=== PATIENT | female | born 1965 | race Hispanic/Latino ===

== ENCOUNTER 2018-01-27 10:37 | Emergency (ER) | payer SELFPAY ==
[2018-01-27 12:26] LABS: Absolute Lymphocytes (CBC) 0.4 K/uL (0.7-4.9); Absolute Monocytes 0.1 K/uL (0.1-1.3); Absolute Neutrophil 11.3 K/uL (1.8-8.0); Basophils % 0.1 % (0-1.3); Eosinophils % 0.1 % (0-4.4); Lymphocytes % 3.2 % (15.3-44.8); MCH 22.5 pg (27.0-35.0); MCV 70.3 fL (80-100); MPV 8.3 fL (7.6-11.3); Monocytes % 1.1 % (3.3-12.3); RBC Red Blood Cell Count 4.41 M/uL (3.86-4.86)
[2018-01-27] MEDS ORDERED: ALBUTEROL 2.5 MG/3 ML NEB SOL ONE (12:29)
[2018-01-27] MEDS ORDERED: IPRATROPIUM BROM 0.5MG/2.5ML ONE (12:29)
[2018-01-27] MEDS ORDERED: predniSONE 20 MG TAB ONE (12:30)
[2018-01-27 12:38] LABS: Protime INR 1.1
[2018-01-27 12:47] LABS: Albumin 3.4 g/dL (3.4-5.0); Bilirubin Direct 0.2 mg/dL (0-0.2); Bilirubin Total 0.5 mg/dL (0.2-1.0); CKMB Creatine Kinase MB 1.9 ng/mL (0.3-3.6); Magnesium 1.5 mg/dL (1.8-2.4); Potassium 3.7 mmol/L (3.5-5.1); Protein, Total 7.5 g/dL (6.4-8.2)
--- NOTE | 2018-01-27 13:45 | RAD REPORT ---
EXAM DESCRIPTION: RAD - Chest Pa And Lat (2 Views) - 01/27/2018 12:30 pm CLINICAL HISTORY: Fever;SOB Chest pain. COMPARISON: No comparisons FINDINGS: Elevated right hemidiaphragmatic leaflet noted, without clear etiology. The lungs are facundo sly clear of acute infiltrate. The heart is upper limit normal in size. No displaced fractures. IMPRESSION: No acute intrathoracic finding is suspected.
[2018-01-27 13:51] LABS: Blood Morphology Comment NOT SEEN (NOT SEEN); Platelet Estimate ADEQ; Urine White Blood Cell Casts OK
--- NOTE | 2018-01-27 13:59 | RAD REPORT ---
EXAM DESCRIPTION: CT - Chest For Pe Angio - 01/27/2018 1:46 pm CLINICAL HISTORY: Chest pain. SOB COMPARISON: Chest Pa And Lat (2 Views) dated 01/27/2018 TECHNIQUE: CT angiogram of the pulmonary arteries was performed with MIP. All CT scans are performed using dose optimization technique as appropriate and may include automated exposure control or mA/KV adjustment according to patient size. FINDINGS: No evidence of pulmonary thromboembolism. No acute aortic finding demonstrated. Subsegmental atelectasis is present in the right lung base with an elevated right hemidiaphragm noted . No significant pericardial or pleural fluid. Mildly prominent mediastinal lymph nodes are present, nonspecific. The largest is in the pretracheal space measuring 12 mm IMPRESSION: No evidence of pulmonary thromboembolism. Elevated right hemidiaphragmatic leaflet with atelectasis in the right lung base.
[2018-01-27 15:04] LABS: Urine Blood 3+ (NEG); Urine Glucose NEGATIVE (NEG); Urine Protein TRACE (NEG); Urine Specific Gravity >1.030 (1.005-1.030)
--- NOTE | 2018-01-27 15:21 | ER ---
Nurse's Notes [facility] Name: Meagan Ford Age: 52 yrs Sex: Female : 1965 Arrival Date: 01/27/2018 Time: 10:38 Bed 19 Private MD: Diagnosis: Unspecified asthma with (acute) exacerbation Presentation: 01/27 11:13 Presenting complaint: Patient states: felt achy this morning and took Tylenol around dm5 0955. Pt states that she started to get the chills and get shaky on the way to work. Pt states that she was nauseated and that when she got to work she had at fever 100.2 and had high blood pressure. Temp is 99.2 here and BP 111/57. Transition of care: patient was not received from another setting of care. Onset of symptoms was January 27, 2018. Risk Assessment: Do you want to hurt yourself or someone else? Patient reports no desire to harm self or others. Initial Sepsis Screen: Does the patient meet any 2 criteria? No. Patient's initial sepsis screen is negative. Does the patient have a suspected source of infection? No. Patient's initial sepsis screen is negative. Care prior to arrival: None. 11:13 Method Of Arrival: Ambulatory 5 11:13 Acuity: GAB 4 dm5 Triage Assessment: 11:13 General: Appears in no apparent distress. Behavior is calm, cooperative. Pain: dm5 Complains of pain in genrealized body aches. Neuro: Level of Consciousness is awake, alert, obeys commands, Oriented to person, time. Respiratory: Airway is patent Respiratory effort is even, unlabored, relaxed, Respiratory pattern is regular. GI: Reports nausea. Derm: Skin is pink, warm \\T\\ dry. Historical: - Allergies: 11:19 No Known Allergies; dm5 - Home Meds: 11:19 None [Active]; dm5 - PMHx: 11:19 "I was told my heart veins were hardening"; dm5 - Immunization history:: Adult Immunizations up to date. - Social history:: Smoking status: Patient/guardian denies using tobacco. - Ebola Screening: : No symptoms or risks identified at this time. Screenin:00 Abuse screen: Denies threats or abuse. Denies injuries from another. Nutritional hb screening: No deficits noted. Tuberculosis screening: No symptoms or risk factors identified. Fall Risk None identified. Assessment: 12:00 General: Appears in no apparent distress. ill, Behavior is calm, cooperative. Pain: hb Denies pain. Neuro: Level of Consciousness is awake, alert, obeys commands, Oriented to person, place, time, situation. Cardiovascular: Heart tones S1 S2 present Capillary refill < 3 seconds Patient's skin is warm and dry. Respiratory: Airway is patent Trachea midline Respiratory effort is even, unlabored, Respiratory pattern is regular, symmetrical, Breath sounds are clear bilaterally. GI: No signs and/or symptoms were reported involving the gastrointestinal system. : No signs and/or symptoms were reported regarding the genitourinary system. EENT: No signs and/or symptoms were reported regarding the EENT system. Derm: No signs and/or symptoms reported regarding the dermatologic system. Skin is intact, is healthy with good turgor. Musculoskeletal: No signs and/or symptoms reported regarding the musculoskeletal system. 13:00 Reassessment: Patient appears in no apparent distress at this time. No changes from hb previously documented assessment. Patient and/or family updated on plan of care and expected duration. Pain level reassessed. Patient is alert, oriented x 3, equal unlabored respirations, skin warm/dry/pink. 14:00 Reassessment: Patient appears in no apparent distress at this time. No changes from hb previously documented assessment. Patient and/or family updated on plan of care and expected duration. Pain level reassessed. Patient is alert, oriented x 3, equal unlabored respirations, skin warm/dry/pink. 15:00 Reassessment: Patient appears in no apparent distress at this time. No changes from hb previously documented assessment. Patient and/or family updated on plan of care and expected duration. Pain level reassessed. Patient is alert, oriented x 3, equal unlabored respirations, skin warm/dry/pink. Vital Signs: 11:13 BP 111 / 57; Pulse 105; Resp 18; Temp 99.2; Pulse Ox 96% on R/A; Weight 99.79 kg; dm5 Height 5 ft. 4 in. (162.56 cm); 12:00 BP 116 / 64; Pulse 100; Resp 18; Pulse Ox 100% on R/A; hb 13:00 BP 112 / 62; Pulse 90; Resp 15; Pulse Ox 100% on R/A; hb 11:13 Body Mass Index 37.76 (99.79 kg, 162.56 cm) dm5 ED Course: 10:38 Patient arrived in ED. as 11:13 Arm band placed on right wrist. Patient placed in an exam room, on a stretcher. dm5 11:15 Triage completed. dm5 11:35 Arcadio Montes, JOSHUA is PHCP. pm1 11:35 Filippo Kline MD is Attending Physician. pm1 12:00 Patient has correct armband on for positive identification. Placed in gown. Bed in low hb position. Call light in reach. Side rails up X 1. 12:14 Initial lab(s) drawn, by me, sent to lab. Flu and/or RSV swab sent to lab. Inserted dh3 saline lock: 20 gauge in right antecubital area, using aseptic technique. Blood collected. 12:27 Chest Pa And Lat (2 Views) XRAY In Process Unspecified. EDMS 12:39 Cierra Waters, RN is Primary Nurse. hb 12:54 Notified Nurse Practitioner and/or Physician Rent [employer] Miscellaneous Remittance Clerk of a critical lab result(s), dm5 d-dimer 909. 13:46 CT completed. Patient tolerated procedure well. Patient moved back from CT. kw1 13:47 CT Chest For PE Angio In Process Unspecified. EDMS 16:30 No provider procedures requiring assistance completed. IV discontinued, intact, hb bleeding controlled, No redness/swelling at site. Pressure dressing applied. Administered Medications: 12:20 Drug: Albuterol - atroVENT (3:1) (2.5 mg - 0.5 mg) 3 ml Route: Nebulizer; hb 13:15 Follow up: Response: No adverse reaction hb 12:20 Drug: predniSONE 60 mg Route: PO; hb 13:15 Follow up: Response: No adverse reaction hb 16:11 Drug: Magnesium 400 mg Route: PO; hb 18:50 Follow up: Response: Medication administered at discharge. hb Outcome: 15:20 Discharge ordered by . pm1 16:30 Discharged to home ambulatory. hb 16:30 Condition: stable 16:30 Discharge instructions given to patient, Instructed on discharge instructions, follow up and referral plans. medication usage, Demonstrated understanding of instructions, follow-up care, medications, Prescriptions given X 2. 16:34 Patient left the ED. hb Signatures: Dispatcher [employer] Coni Rose RN RN dm5 Greda Valencia Rebecca, RN RN rb1 Arcadio Montes, INSTALLER METAL FLOORING INSTALLER METAL FLOORING pm1 Cierra Waters RN RN hb Herrera, Deanna 3 Radhika Anguiano kw1 Corrections: (The following items were deleted from the chart) 11:15 11:12 Presenting complaint: rb1 dm5
--- NOTE | 2018-01-27 15:21 | EDPHYS ---
Physician Documentation [facility] Name: Meagan Ford Age: 52 yrs Sex: Female : 1965 Arrival Date: 01/27/2018 Time: 10:38 Bed 19 Private MD: ED Physician Filippo Kline HPI: 01/27 15:00 This 52 yrs old Female presents to ER via Ambulatory with complaints of Fever pm1 and High Blood Pressure. 15:00 Patient presents to the ER with complaints of fever and elevated blood pressure. pm1 Patient generalized bodyaches and chills when she was driving to work. When she got to work she had her vital signs checked and was told that she had a temperature of 100.2 and her blood pressure was elevated. Patient works at [employer] and she did not take any medications prior to arrival to the ER. Patient temperature is 99.2 and her BP is 11/57 on arrival to ER. Patient reports shortness of breath that feels like her asthma exacerbations. No cough, no chest pain. Historical: - Allergies: 11:19 No Known Allergies; dm5 - Home Meds: 11:19 None [Active]; dm5 - PMHx: 11:19 "I was told my heart veins were hardening"; dm5 - Immunization history:: Adult Immunizations up to date. - Social history:: Smoking status: Patient/guardian denies using tobacco. - Ebola Screening: : No symptoms or risks identified at this time. ROS: 15:00 Eyes: Negative for injury, pain, redness, and discharge, ENT: Negative for injury, pm1 pain, and discharge, Neck: Negative for injury, pain, and swelling, Cardiovascular: Negative for chest pain, palpitations, and edema, Abdomen/GI: Negative for abdominal pain, nausea, vomiting, diarrhea, and constipation, Back: Negative for injury and pain, : Negative for injury, bleeding, discharge, and swelling, MS/Extremity: Negative for injury and deformity. 15:00 Skin: Negative for injury, rash, and discoloration, Neuro: Negative for headache, weakness, numbness, tingling, and seizure. 15:00 Constitutional: Positive for body aches, chills, fever. 15:00 Respiratory: Positive for shortness of breath. Exam: 15:00 Constitutional: This is a well developed, well nourished patient who is awake, alert, pm1 and in no acute distress. Head/Face: Normocephalic, atraumatic. Eyes: Pupils equal round and reactive to light, extra-ocular motions intact. Lids and lashes normal. Conjunctiva and sclera are non-icteric and not injected. Cornea within normal limits. Periorbital areas with no swelling, redness, or edema. ENT: Nares patent. No nasal discharge, no septal abnormalities noted. Tympanic membranes are normal and external auditory canals are clear. Oropharynx with no redness, swelling, or masses, exudates, or evidence of obstruction, uvula midline. Mucous membranes moist. Neck: Trachea midline, no thyromegaly or masses palpated, and no cervical lymphadenopathy. Supple, full range of motion without nuchal rigidity, or vertebral point tenderness. No Meningismus. Chest/axilla: Normal chest wall appearance and motion. Nontender with no deformity. No lesions are appreciated. Cardiovascular: Regular rate and rhythm with a normal S1 and S2. No gallops, murmurs, or rubs. Normal PMI, no JVD. No pulse deficits. 15:00 Back: No spinal tenderness. No costovertebral tenderness. Full range of motion. Skin: Warm, dry with normal turgor. Normal color with no rashes, no lesions, and no evidence of cellulitis. MS/ Extremity: Pulses equal, no cyanosis. Neurovascular intact. Full, normal range of motion. 15:00 Respiratory: the patient does not display signs of respiratory distress, Respirations: normal, Breath sounds: wheezing: expiratory is heard diffusely. 15:00 Abdomen/GI: Inspection: soft reducible ventral hernia present, Bowel sounds: normal, Palpation: abdomen is soft and non-tender. 15:00 Neuro: Orientation: is normal, Motor: moves all fours, strength is normal, strength is 5/5 in all extremities. Vital Signs: 11:13 BP 111 / 57; Pulse 105; Resp 18; Temp 99.2; Pulse Ox 96% on R/A; Weight 99.79 kg; dm5 Height 5 ft. 4 in. (162.56 cm); 12:00 BP 116 / 64; Pulse 100; Resp 18; Pulse Ox 100% on R/A; hb 13:00 BP 112 / 62; Pulse 90; Resp 15; Pulse Ox 100% on R/A; hb 11:13 Body Mass Index 37.76 (99.79 kg, 162.56 cm) dm5 MDM: 11:37 Patient medically screened. abhijit 15:15 ED course: Patient reports that she has a large uterine fibroid mass for at least 1 pm1 year. Instructed patient to follow up with gynecology and general surgeons for evaluation and treatment of uterine fibroid and ventral hernia. 15:19 Data reviewed: vital signs. Data interpreted: Pulse oximetry: on room air is 100 %. pm1 Interpretation: normal. Counseling: I had a detailed discussion with the patient and/or guardian regarding: the historical points, exam findings, and any diagnostic results supporting the discharge/admit diagnosis, lab results, radiology results, the need for outpatient follow up, to return to the emergency department if symptoms worsen or persist or if there are any questions or concerns that arise at home. 01/27 11:55 Order name: Flu; Complete Time: 12:53 pm01/27 11:59 Order name: Basic Metabolic Panel; Complete Time: 12:53 pm01/27 11:59 Order name: CBC with Diff; Complete Time: 14:04 pm01/27 11:59 Order name: Ckmb; Complete Time: 12:53 pm01/27 11:59 Order name: CPK; Complete Time: 12:53 pm01/27 11:59 Order name: LFT's; Complete Time: 12:53 pm01/27 11:59 Order name: Magnesium; Complete Time: 12:53 pm01/27 11:59 Order name: NT PRO-BNP; Complete Time: 12:53 pm01/27 11:59 Order name: PT-INR; Complete Time: 12:53 pm01/27 11:59 Order name: Ptt, Activated; Complete Time: 12:53 pm01/27 11:59 Order name: Troponin (emerg Dept Use Only); Complete Time: 12:53 pm01/27 12:03 Order name: D-Dimer; Complete Time: 12:53 pm01/27 12:32 Order name: CBC Smear Scan; Complete Time: 14:04 EDMS 01/27 13:12 Order name: Urine Dipstick--Ancillary (enter results); Complete Time: 15:11 bd 01/27 11:55 Order name: Chest Pa And Lat (2 Views) XRAY; Complete Time: 14:04 pm01/27 11:59 Order name: Urine Test (obtain specimen); Complete Time: 12:39 pm01/27 11:59 Order name: EKG; Complete Time: 12:00 pm01/27 11:59 Order name: Cardiac monitoring; Complete Time: 12:16 pm01/27 11:59 Order name: EKG - Nurse/Tech; Complete Time: 12:39 pm01/27 11:59 Order name: IV Saline Lock; Complete Time: 12:16 pm01/27 11:59 Order name: Labs collected and sent; Complete Time: 12:16 pm01/27 11:59 Order name: O2 Per Protocol; Complete Time: 12:16 pm01/27 11:59 Order name: O2 Sat Monitoring; Complete Time: 12:16 pm01/27 11:59 Order name: Urine Dipstick-Ancillary (obtain specimen); Complete Time: 12:39 pm01/27 12:56 Order name: CT Chest For PE Angio; Complete Time: 14:04 pm01/27 13:12 Order name: Urine --Ancillary (enter results); Complete Time: 15:11 bd Administered Medications: 12:20 Drug: Albuterol - atroVENT (3:1) (2.5 mg - 0.5 mg) 3 ml Route: Nebulizer; hb 13:15 Follow up: Response: No adverse reaction hb 12:20 Drug: predniSONE 60 mg Route: PO; hb 13:15 Follow up: Response: No adverse reaction hb 16:11 Drug: Magnesium 400 mg Route: PO; hb 18:50 Follow up: Response: Medication administered at discharge. hb Disposition: 01/28 06:59 Co-signature as Attending Physician, Filippo Kline MD I agree with the assessment and abhijit plan of care. Disposition: 01/27/18 15:20 Discharged to Home. Impression: Unspecified asthma with (acute) exacerbation. - Condition is Stable. - Discharge Instructions: Asthma, Adult. - Prescriptions for Prednisone 20 mg Oral Tablet - take 3 tablet by ORAL route once daily for 5 days; 15 tablet. Albuterol Sulfate 90 mcg/actuation - inhale 1-2 puff by INHALATION route every 4-6 hours; 1 Inhaler. - Medication Reconciliation Form, Thank You Letter form. - Follow up: Emergency Department; When: As needed; Reason: Worsening of condition. Follow up: Private Physician; When: 2 - 3 days; Reason: Recheck today's complaints, Continuance of care, Re-evaluation by your physician. - Problem is new. - Symptoms have improved. Signatures: Dispatcher [employer] EDConi Billings, RN RN dm5 Filippo Kline MD MD cha Marinas, Patrick, CORDUROY CUTTING SUPERVISOR CORDUROY CUTTING SUPERVISOR pm1 Cierra Waters RN RN hb Corrections: (The following items were deleted from the chart) 01/27 16:34 15:20 01/27/2018 15:20 Discharged to Home. Impression: Unspecified asthma with (acute) hb exacerbation. Condition is Stable. Forms are Medication Reconciliation Form, Thank You Letter, Antibiotic Education, Prescription Opioid Use. Follow up: Emergency Department; When: As needed; Reason: Worsening of condition. Follow up: Private Physician; When: 2 - 3 days; Reason: Recheck today's complaints, Continuance of care, Re-evaluation by your physician. Problem is new. Symptoms have improved. pm1
[2018-01-27] MEDS ORDERED: MAGNESIUM OXIDE 400 MG TAB ONE (16:18)
--- NOTE | 2018-01-28 09:46 | EKG ---
Test Date: 2018-01-27 Test Time: 12:31:29 Sustainment Logistics Analyst: DINAH MEASUREMENT RESULTS: Intervals: Rate: 105 NM: 160 QRSD: 100 QT: 352 QTc: 465 [place]: P: 52 NM: 160 QRS: 6 T: 48 INTERPRETIVE STATEMENTS: Sinus tachycardia Possible Left atrial enlargement Inferior infarct, age undetermined Cannot rule out Anterior infarct, age undetermined Abnormal ECG No previous ECG available for comparison Electronically Signed On 01-28-18 09:45:29 CDT by Darrick Parsons
== END 2018-01-27 16:34 | disposition home or self-care (01) ==
LOC: ER 10:37
DX: J45.901 Unspecified asthma with (acute) exacerbation (principal); I10 Essential (primary) hypertension
CPT/HCPCS: 36415; 71046; 71275; 80048; 80076; 81003; 81025; 82550; 82553; 83735; 83880; 84484; 85025; 85379; 85610; 85730; 87804; 93005; 94640; 99285; J7512; Q9967